=== PATIENT | male | born 1945 | race Caucasian/White ===

== ENCOUNTER 2016-10-19 14:13 | Inpatient (IN) | payer MEDICARE, OTHER ==
[~2016-10-19 14:13] MED LIST: ALAVERT D PO; ALLEGRA-D 12 H1 EACH PO; ALLERGY RELIE15.8 ML; AMOXICILLIN500 M1 PO; ASPIRIN81 M1 PO; ATORVASTATIN CA40 MG PO; AUGMENTIN 875-1 EAC2 PO; BACITRACIN28.4 G2 TOP; BUPROPION HCL75 M1 PO; CALCIUM; CALCIUM MAGNES1 EAC1 PO; COLACE-T100 MG PO; CRESTOR20 MG PO; CRESTOR40 MG PO; CYMBALTA60 M1 PO; DEBROX15 M1 EACH EAR; DESYREL50 MG/TAB PO; DULCOLAX10 MG PR; ELIQUIS5 M1 PO; ENEMA133 M4 PR; FLONASE ALLERG9.9 ML; FOLATE; FOLTX TABLET1 EAC1 PO; GLUCAGON HCL1 MG SC; GLUCOPHAGE500 MG PO; HYDRALAZINE HCL10 M1 PO; HYDROCHLOROTHIA25 M1 PO; HYDROXYZINE HCL10 M1 PO; KEFLEX500 M1 PO; KLONOPIN0.5 M1 PO; KLONOPIN0.5 MG PO; LEVEMIR100 U/M SQ; LEVEMIR100 U/ML SQ; LEVEMIR100 UNITS/ SC; LIPOFEN150 MG PO; LISINOPRIL10 MG PO; LISINOPRIL20 M1 PO; LISINOPRIL40 MG PO; LOPRESSOR25 MG/TA7 PO; LOPRESSOR50 M1 PO; LORAZEPAM2 MG/1 M4 PO; LOTRISONE CREAM15 GM TP; MACROBID 100 M100 M1 PO; MACROBID100 MG/CA2 PO; MEDS; METOPROLOL TART50 MG PO; MILK OF MAGNESIA PO; MIRABEGRON PO; MIRALAX17 G2 PO; MORPHINE S20 MG/1 M1 PO; MULTI VITAMIN1 EAC2 PO; MYRBETRIG PO; MYRBETRIQ50 M1 PO; NORVASC10 M2 PO; NORVASC10 MG PO; NOVOLOG100 UNITS/; NOVOLOG100 UNITS/ SC; NUEDEXTA 20-101 EAC1 PO; OXYCODONE/APAP PO; PERCOCET 5-3251 EACH PO; PLAVIX75 M1 PO; PLAVIX75 MG PO; POTASSIUM CHLO20 ME3 PO; PROTONIX40 M2 PO; REMERON15 M1 PO; SENNA-S TABLET1 EAC3 PO; SENNALAX S PO; SENOKOT-S (SENN1 TA1 PO; SENOKOT-S TABL1 EACH PO; SENOKOT8.6 MG PO; SINEMET 25-2501 EAC1 PO; SYNTHROID125 MC1 PO; TAMIFLU75 MG/CAP PO; TESTOSTERO100 MG/1 M IM; TYLENOL325 M1 PO; TYLENOL325 M2 PO; ULTRAM50 MG PO; UTI-STAT L3875 MG/31 PO; VICTOZA 2-0.6 MG/0.1 SC; VICTOZA0.6 MG/0.1 SQ; VITAMIN D5000 UNI1 PO; XARELTO20 M2 PO; ZINC PO; ZOLOFT50 M1 PO; [UNRECOGNIZED DRUG - OTHER] PO
[2016-10-19 15:11] LABS: BASO % 0.3 % (0-2); EOSINOPHIL ABSOLUTE COUNT 0.1 tho/cmm (0.0-0.7); HCT-HEMATOCRIT 45.1 % (36.0-53.5); HGB-HEMOGLOBIN 15.8 gm/dl (13.5-17.0); IMMATURE GRANULOCYTES ABSOLUTE 0.04 tho/cmm (0-0.03); IMMATURE GRANULOCYTES PERCENT 0.6 % (0-0.3); LYMPH % 21.6 % (20-45); LYMPH ABSOLUTE COUNT 1.6 tho/cmm (0.8-4.5); MCH (MEAN CORPUSCULAR HGB) 28.9 pg (28.0-32.0); MCV (MEAN CELL VOLUME) 82.6 fl (82.0-96.0); MEAN PLATELET VOLUME 9.5 cmc (9.4-12.4); MONO % 10.9 % (0-12); MONOCYTE ABSOLUTE COUNT 0.8 tho/cmm (0.0-1.2); NEUTROPHIL ABSOLUTE COUNT 4.8 tho/cmm (1.6-8.0); NEUTROPHIL-AUTOMATED 4.8 tho/cmm (1.6-8.0); NEUTROPHILS % 65.6 % (40-80); PLATELET COUNT 283 tho/cmm (150-450); RED BLOOD COUNT 5.46 mil/cmm (4.40-5.70); RED CELL DISTRIBUTION WIDTH 13.6 % (12.4-16.4); WHITE BLOOD COUNT 7.2 tho/cmm (4.0-10.0)
[2016-10-19 15:23] LABS: ANION GAP 14 mmol/L (0-20); BLOOD UREA NITROGEN 15 mg/dl (6-24); CALCIUM 8.3 mg/dl (8.5-10.5); CARBON DIOXIDE-VENOUS 27 mmol/L (22-32); CHLORIDE 102 mmol/l (96-110); CREATININE 0.85 mg/dl (0.60-1.30); GLUCOSE 188 mg/dL (70-110); POTASSIUM 3.5 mmol/L (3.7-5.1); SODIUM 139 mmol/L (135-145); eGFR VALUE FOR BLACK >90 mL/Min
[2016-10-19] MEDS ORDERED: ASPIRIN EC81 MG PO (16:11)
[2016-10-19] MEDS ORDERED: ALLEGRA-D 12 H1 EACH PO (16:11)
[2016-10-19] MEDS ORDERED: MYRBETRIQ50 M1 PO (16:12)
[2016-10-19] MEDS ORDERED: FOLTX TABLET1 EAC1 PO (16:13)
[2016-10-19] MEDS ORDERED: CILOSTAZOL100 M1 PO (16:14)
[2016-10-19] MEDS ORDERED: REPATHA SY140 MG/1 M (16:15)
[2016-10-19] MEDS ORDERED: HYDROCHLOROTHIA25 M1 PO (16:39)
[2016-10-19] MEDS ORDERED: MIRAPEX0.125 M1 PO (16:42)
[2016-10-19 17:00] LABS: URINE APPEARANCE HAZY; URINE BILIRUBIN NEGATIVE (NEG); URINE BLOOD SMALL (NEG); URINE COLOR YELLOW; URINE GLUCOSE (UA) SMALL (NEG); URINE KETONE SMALL (NEG); URINE LEUKOCYTE ESTERASE POSITIVE (NEG); URINE NITRITE POSITIVE (NEG); URINE PROTEIN SMALL (NEG); URINE SPECIFIC GRAVITY 1.015 (1.003-1.030)
[2016-10-19 17:05] LABS: URINE BACTERIA 4+; URINE EPITHELIAL CELLS 0 /[HPF] (0-10)
[2016-10-19 17:06] LABS: URINE WBC 30-50 /[HPF] (0-5)
[2016-10-20 06:30] LABS: ANION GAP 12 mmol/L (0-20); BLOOD UREA NITROGEN 14 mg/dl (6-24); CARBON DIOXIDE-VENOUS 28 mmol/L (22-32); CHLORIDE 106 mmol/l (96-110); CREATININE 0.81 mg/dl (0.60-1.30); GLUCOSE 178 mg/dL (70-110); POTASSIUM 3.6 mmol/L (3.7-5.1); SODIUM 142 mmol/L (135-145); eGFR VALUE FOR BLACK >90 mL/Min
[2016-10-20 06:34] LABS: TSH-THYROID STIMULATING HORM. 0.53 uIU/ml (0.40-3.80)
[2016-10-21] MEDS ORDERED: AMOXICILLIN500 M1 PO (10:10)
[2016-10-21] MEDS ORDERED: MIRALAX17 G2 PO (10:15)
== END 2016-10-21 12:55 | DRG 690 ==
LOC: EDMED 14:13 → EMR2 21:35 → 5EB 22:36
PROVIDERS: Emergency Medicine; Family Medicine; Internal Medicine; ADMIT Hospitalist
DX: N39.0 Urinary tract infection, site not specified (principal); G20 Parkinson's disease; I27.2 Other secondary pulmonary hypertension; I69.354 Hemiplegia and hemiparesis following cerebral infarction affecting left non-dominant side; I69.351 Hemiplegia and hemiparesis following cerebral infarction affecting right dominant side; B96.20 Unspecified Escherichia coli [E. coli] as the cause of diseases classified elsewhere; I10 Essential (primary) hypertension; E78.5 Hyperlipidemia, unspecified; F32.9 Major depressive disorder, single episode, unspecified; E03.9 Hypothyroidism, unspecified; M48.06 Spinal stenosis, lumbar region; I07.1 Rheumatic tricuspid insufficiency; Z86.711 Personal history of pulmonary embolism; Z79.01 Long term (current) use of anticoagulants; Z79.82 Long term (current) use of aspirin; Z79.4 Long term (current) use of insulin; Z79.899 Other long term (current) drug therapy
CPT/HCPCS: G8978-GP-CJ; G8979-GP-CJ; J0696; J1815; J7030; J7050; P9612